=== PATIENT | male | born 1965 | race Caucasian/White ===

== ENCOUNTER 2018-02-02 12:45 | Emergency (ER) | payer OTHER ==
[~2018-02-02] VITALS: Ht 180.3 cm; Wt 181.9 kg
--- NOTE | ~2018-02-02 | EKG ---
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
[~2018-02-02 12:45] MED LIST: EES400 MG PO
[2018-02-02 13:51] LABS: HEMATOCRIT 28.2 % (42.0-52.0); HEMOGLOBIN 9.6 g/dl (14.0-18.0); MEAN CELL VOLUME 108.9 fl (80.0-94.0); MEAN CORPUSCULAR HGB 37.1 pg (27.0-31.0); MEAN PLATELET VOLUME 9.5 fl (9.6-12.3); PLATELET COUNT AUTOMATED 61 10*3/uL (130-400); RED BLOOD COUNT 2.59 10*6/uL (4.50-5.90); RED CELL DISTRI WIDTH 17.2 % (0-14.5); WHITE BLOOD COUNT 6.4 10*3/uL (4.8-10.8)
[2018-02-02 13:59] LABS: ACT PARTIAL THROMBO TIME 32.4 SECONDS (20.8-31.5); INTERNATIONAL NORM RATIO 1.6 (2.0-3.5)
[2018-02-02 14:06] LABS: ALKALINE PHOSPHATASE 74 U/L (45-117); BUN 18 mg/dl (7-24); CHLORIDE 96 mmol/L (98-107); LIPASE 145 U/L (73-393); POTASSIUM 3.7 mmol/L (3.5-5.1); SGOT/AST 88 IU/L (3-35); SGPT/ALT 40 U/L (12-78); SODIUM 133 mmol/L (136-145); TOTAL PROTEIN 7.4 gm/dL (6.4-8.2)
[2018-02-02 14:09] LABS: BASOPHILS 2 % (0-1); TOTAL CELLS COUNTED 100 #CELLS; TROPONIN I < 0.015 ng/ml (<0.045)
[2018-02-02 14:10] LABS: PLATELET SUFFICIENCY LOW (NORMAL)
== END 2018-02-02 17:30 | disposition left against medical advice (07) ==
LOC: ED 12:45
PROVIDERS: Emergency Medicine
DX: N50.89 Other specified disorders of the male genital organs (principal); R60.1 Generalized edema; E11.9 Type 2 diabetes mellitus without complications; Z88.0 Allergy status to penicillin